=== PATIENT | female | born 1935 | race Caucasian/White ===

== ENCOUNTER 2017-04-06 11:33 | Day surgery (SDC) | payer MEDICARE, MEDICAID ==
[~2017-04-06] VITALS: Ht 160 cm; Wt 80.7 kg
[~2017-04-06 11:33] MED LIST: 0.9% Sodium Chloride 1,000 ML IV SCH; COLE1TAB2 PO; HYDR-656 PO; METF-496 PO; PIOG45TA PO; SITA50TA PO; Sodium Chloride LOK Flush 10 mL Syringe IV PRN; TELM1TAB PO; fentaNYL-PF 50 mCg/mL 2 mL Inj IVPUSH PRN
[2017-04-06 12:53] VITALS: BP 151/72; PULSE 69; O2SAT 98
[2017-04-06] MEDS ORDERED: 0.9% Sodium Chloride 1,000 ML IV ONE (13:45)
[2017-04-06 13:50] VITALS: BP 120/52; PULSE 73; RESP 16; O2SAT 98
[2017-04-06 14:00] VITALS: BP 110/50; PULSE 75; RESP 16; O2SAT 97
[2017-04-06 14:10] VITALS: BP 136/73; PULSE 76; RESP 16; O2SAT 99
--- NOTE | 2017-04-06 14:17 | PCM.ENDCOL ---
Colonoscopy Date of Service: Apr 06, 2017 Physician Stuart Fried MD Pre Procedure Diagnosis: Diarrhea screening Post Procedure Dx & Findings: Polyp hemorrhoids and diverticulosis Procedure Colonoscopy PROCEDURE IN DETAIL: Prep adequate Withdrawal time 12 minutes After unremarkable rectal examination the Olympus video colonoscope was inserted patient's anal canal and was advanced to cecum. Landmarks were identified including the ileocecal valve and appendiceal orifice. I attempted to insert the scope into the terminal ileum. Unsuccessful. Scope was withdrawn systematically. Visualized colonic mucosa showed healthy shiny mucosa with normal healthy-appearing vasculature. In the cecum, there was a 2-3 mm polyp which was removed completely using cold snare. In the ascending colon there was a 1 mm polyp which is removed completely using cold forceps. Random biopsies were done from the cecum to the rectum for workup of diarrhea. Patient had diverticulosis mostly in the sigmoid colon however some isolated diverticula noted in the cecum and the ascending colon. There were all small. In the rectum retroflexion was done which showed hemorrhoids. Anal canal was inspected carefully on the way out and hemorrhoids noted. Impression Polyp 2 status post complete removal Diverticulosis Hemorrhoids Recommendation Repeat colonoscopy in 5 years Diverticular diet Presedation Assessment Risks and Benefits Informed consent was obtained from the patient after all risks and benefits including but not limited to drug reaction, infection, pain, bleeding, perforation, as well as alternatives were discussed. Patient monitoring Continuous pulse oximetry, cardiac monitoring, blood pressure monitoring, IV access, and oxygen at 2L per nasal cannula. Periprocedural Fentanyl: Fentanyl 100mcg Incrementally Midazolam: Midazolam 5mg Incrementally Complications There were no periprocedural complications identified. Post Procedure Plan Post Procedure Recommendations 1. Restrict activities today. 2. Resume normal activities in the morning. 3. Resume medications. 4. Patient informed of normal post procedure side effects as bloating, drowsiness, blood streaking in the stool. 5. average risk CRCS. If colon polyps come back as: -Hyperplastic- can repeat colonoscopy in 10 years -Tubular adenoma- repeat colonoscopy in 5 years -Tubulovillous/villous adenoma- repeat colonoscopy in 3 years -If any dysplasia- return to clinic as soon as possible 6. Please don't hesitate to call me with any questions. Stuart Fried MD Apr 06, 2017 14:17
--- NOTE | 2017-04-13 09:31 | PATH ---
SURGICAL PATHOLOGY Attending Physician:Stuart Fried M.D. CASE STATUS: Signed Out PATIENT NAME: IRIS MARIN PID: [id number] : 1935 DATE COLLECTED:04/06/2017 00:00 SPECIMEN: 1: Colon, Polyp 2: Colon, Polyp 3: Colon, Biopsy CLINICAL HISTORY: 1). CECAL POLYP 2). ASCENDING POLYP 3). RANDOM COLON BIOPSY FINAL DIAGNOSIS: 1.CECAL POLYP: TUBULAR ADENOMA. 2.ASCENDING COLON POLYP: TUBULAR ADENOMA. 3.RANDOM COLON BIOPSY: COLONIC MUCOSA WITH NO DIAGNOSTIC ALTERATIONS. Negative for inflammation, dysplasia and malignancy. ICD10 D12.0 D12.2 GROSS DESCRIPTION: Received three formalin-filled containers, each labeled with the patient' s name: 1. In a container labeled "cecal polyp", the specimen consists of three portions of tissue which aggregate to 0.3 x 0.3 x 0.2 cm. The specimen is entirely submitted in cassette 1A. 2. In a container labeled "ascending polyp", the specimen consists of a 0.3 x 0.2 x 0.2 cm portion of tissue which is entirely submitted in cassette 2A. 3. In a container labeled "random colon", the specimen consists of multiple portions of tissue which aggregate to 0.4 x 0.4 x 0.2 cm. The specimen is entirely submitted in cassette 3A. ([id number]) MICRO DESCRIPTION: See diagnosis. ICD-9 CODES: CPT CODES: 1: 51834 2: 90566 3: 29561 Electronically Signed Out Magnolia Garcia MD [facility] [address], [place] [address] Technical component performed at [facility], [address], [place], [address]
== END 2017-04-06 23:59 | disposition home or self-care (01) ==
LOC: END 11:33
PROVIDERS: ATTEND Internal Medicine
DX: R19.7 Diarrhea, unspecified (principal); D12.2 Benign neoplasm of ascending colon; D12.0 Benign neoplasm of cecum; K57.30 Diverticulosis of large intestine without perforation or abscess without bleeding; K64.9 Unspecified hemorrhoids; Z80.0 Family history of malignant neoplasm of digestive organs; E11.42 Type 2 diabetes mellitus with diabetic polyneuropathy; Z79.84 Long term (current) use of oral hypoglycemic drugs; I10 Essential (primary) hypertension; E03.9 Hypothyroidism, unspecified
CPT/HCPCS: 45380; 45385; 99153; G0500; J2250; J3010; J7030

== ENCOUNTER → 2017-06-29 | Day surgery (SDC) | payer MEDICARE ==
[~2017-06-29] VITALS: Ht 162.6 cm; Wt 80.2 kg
[~2017-06-29] MED LIST changes: -0.9% Sodium Chloride 1,000 ML IV SCH; +Atropine 0.4 mg/mL Inj IVPUSH PRN; +Bupivacaine-MPF 0.25% 30 mL Inj INFILTRATE ONE; +Clindamycin Inj 900 MG in IV Premix 1 EACH IV ONE; +Dexamethasone 4 mg/mL Inj IVPUSH PRN; +EPHEDrine Sulfate 50 mg/mL Inj IVPUSH PRN; +HYDROmorphone 1 mg/mL Inj IVPUSH PRN; +Labetalol 5 mg/mL 20 mL Inj IV PRN; +Lactated Ringer's 1,000 ML IV SCH; +Lactated Ringer's 500 ML IV PRN; +Lidocaine 2%-Epi 1:100,000 20 mL Inj INFILTRATE ONE; +MAGN250T2 PO; +Ondansetron 2 mg/mL 2 mL Inj IVPUSH PRN; -PIOG45TA PO; +Phenylephrine 10,000 mCg/mL Inj IVPUSH PRN; +Propofol 10,000 mCg/mL 20 mL Inj ONE; +Remifentanil 1 mg/3 mL Inj ONE; -Sodium Chloride LOK Flush 10 mL Syringe IV PRN; +hydrALAZINE 20 mg/mL Inj IVPUSH PRN; +levoFLOXacin Inj 500 MG in IV Premix 1 EACH IV ONE
--- NOTE | 2017-06-29 07:32 | PCM.HPANE ---
Patient Data Surgeon Admitting Provider: Attending Provider:Jose Arreola MD Primary Care Physician:Marciano Bowens MD Other Provider:[facility] [facility] Reason for Visit Right Cheek Basal Cell Carcinoma Ht/WT & BMI Height (Feet): 5 Height (Inches): 4 Weight (Kilograms): 81.647 Body Mass Index 30.00 Allergies Coded Allergies: amoxicillin (Verified Allergy, Unknown, UNKNOWN (PT REMEMBERS NO REACTION; FEELS SHE IS NOT ALLERGIC), 06/23/17) clindamycin (Verified Allergy, Unknown, UNKNOWN, 06/23/17) codeine (Verified Allergy, Unknown, UNKNOWN, 06/23/17) onion (Verified Adverse Reaction, Severe, N/V, 06/23/17) Past Anesthesia History Anesthesia History: Denies:: Abnormal Airway, Anesthesia Reactions, Difficult Intubation, Fam Anesthesia Reaction, Fam Malignant Hypertherm, Malignant Hyperthermia Diabetes History Hx Diabetes?: Yes (01/2017 HGB A1C 5.9) Type of Diabetes: Type II Glycemic Control: Oral Medication MRSA MRSA: No Medications Hypertension Medication: Yes (MICARDIS HCT) Reported Medications Metformin ER 1,000 Mg Tablet1,000 Mg PO BID Ref 0 04/05/17 Telmisartan/HCTZ 80-25 mg (Micardis HCT 80-25 mg)1 Each Tablet1 Tablet PO DAILY 04/05/17 Sitagliptin Phos (Januvia)50 Mg Fniafy10 Mg PO DAILY Ref 0 04/05/17 hydrOXYzine Hcl (HydrOXYzine Hcl)25 Mg Natifz86 Mg PO HS PRN For Anxiety 04/05/17 Colestipol 1 Gm Tablet1 Gm PO BID 04/05/17 Discontinued Reported Medications Magnesium 250 Mg [id number] Mg PO BID PLEASE VERIFY DOSAGE 06/23/17 Pioglitazone-Expunged Drug, Do Not Renew! 45 Mg Yneqif68 Mg PO DAILY 10/25/10 History History of ENT Problems?: Yes HEENT History: Positive for:: Cataracts (S/P EXTRACTION) Hearing Problem Denies:: Abnormal Airway Difficult Intubation Dysphagia Denture Type: Full- Upper Full- Lower Teeth Condition: Within Normal Limits Hx of Heart Problems?: Yes Cardiovascular History: Positive for:: Chest Pain (HX OF 10/2009 MPS WNL) Hypertension Denies:: AICD Atrial Fibrillation Pacemaker Valvular Heart Disease Hx of Respiratory Problem?: No Respiratory History: Denies:: Use of C-PAP Machine Hx Neurologic Problems?: Yes Neurological History: Positive for:: Headaches (occas) Denies:: CVA Dementia Other Neurological Pertinent: C/OF DIABETIC POLYNEUROPATHY Hx of GI Problems?: Yes Other GI Pertinent History: C/OF LONG-STANDING HX OF DIARRHEA Hx of Problems?: No Female Hx: Denies:: Currently Skin History: Positive for:: History Skin Disorders? (S/P OFFICE EXC BBASAL CELL CA FACE BCC FACE=CURRENT PROBLEM) Denies:: Pressure Ulcers Hx Musculoskeletal Problems?: Yes Musculoskeletal History: Positive for:: Joint Replacement (S/P LT TKA) Musculoskeletal Trauma (S/P ORIF LT PROX. HUMERUS (FALL)) Hx of Psycho/Social Problems?: Yes Psycho Social History: Positive for:: Anxiety Hx Depression Hx Surgeries?: Yes (LT TKA,CATARACT,ORIF LT PROX. HUMERUS,EXC FACIAL BCC) Hx Any Other Health Problems?: Yes Other History: Positive for:: Thyroid Disease (ON NO MEDS) Denies:: Cancer Endocrine Disease Hospitalization History Blood Transfusions: Denies:: Blood Transfusions Hx Diabetes: Yes (01/2017 HGB A1C 5.9) Hx Alcohol Use: NoHx Substance Use: NoHave You Smoked inLast 12 mo: No Stop/Bang S-Snoring: Do You Snore Loudly: No T-Tired: feel tired, fatigued: Yes O-Obsered: Observed not breath: No P-Blood Pressure: treated: Yes B- Body Mass Index > 35 kg/m2: No A- Age over 50: Yes N- Neck Large Circumference: No G- Gender Male: No DAY Total Score: 3 Risk Assessment Category Category 1A: Patient has history of documented sleep apnea, and HAS NOT received any narcotic, sedative or anesthesia administration during this stay. Category 1B: Patient has history of documented sleep apnea, and HAS received any narcotic , sedative or anesthesia administration during this stay Category 2: Patient has SUSPECTED Obstructive Sleep Apnea, and HAS received any narcotic , sedative or anesthesia administration during this stay. Category 3: Patient has SUSPECTED Obstructive Sleep Apnea and HAS NOT received narcotic, sedative or anesthesia administration during this stay. Category 4: Outpatient in Procedural Areas with known sleep apnea or who screen positive for High Risk via the STOP/BANG questionnaire. Exam Exam General Appearance: Alert, Oriented X3, Cooperative HEENT/AIRWAY: MP 3 Lungs: Clear to Auscultation Heart: Exam Unremarkable Plan Impression Patient chart reviewed, patient interviewed and anesthestic plan with risks, benefits, and alternatives discussed, and informed consent obtained. ASA Physical Status: ASA2 Mod Systemic Disease Anesthetic Plan: MAC Bene/Risks/Altern/Consents: Yes HP Complete Prior to Induction: Yes Zane Sanz MD Jun 29, 2017 07:32
[2017-06-29 07:33] VITALS: BP 150/62; PULSE 73; RESP 16; O2SAT 100
[2017-06-29] MEDS: Lactated Ringer's 1,000 ML IV SCH ×2 (08:07→08:59)
[2017-06-29 09:55] VITALS: BP 131/55; PULSE 75; RESP 16; O2SAT 100
--- NOTE | 2017-06-29 10:22 | PCM.ANEP1 ---
Post Anesthesia PACU Phase 1 Assessment Vital Signs Vital Signs Date Time Temp Pulse Resp B/P Pulse Ox O2 Delivery O2 Flow Rate FiO2 06/29/17 09:55 36.2 75 16 131/55 100 Room Air 06/29/17 07:33 36.4 73 16 150/62 100 Room Air Anesthetic Administered: MAC Level of Alertness: Awake, talking PEDERSEN's with Equal Strength: Yes Pain: No Nausea or Vomiting: No CV Function & Hydration Stable: Yes Airway Device: Oxygen Delivery: Room Air Lungs: Clear to Auscultation PACU Phase 2 Assessment Complications: No Follow up Care: No Patient Instructions Provided: N/A Zane Sanz MD Jun 29, 2017 10:22
--- NOTE | 2017-06-30 18:46 | OP ---
[address] [address] OPERATIVE REPORT PATIENT: IRIS MARIN : 1935 MR#: [id number] ADMIT: 06/29/2017 JOB ID: [id number] DATE OF SURGERY: 06/29/2017 PREOPERATIVE DIAGNOSIS(ES): Right medial cheek, nasolabial fold basal cell carcinoma. POSTOPERATIVE DIAGNOSIS(ES): Right medial cheek, nasolabial fold basal cell carcinoma. PROCEDURE PERFORMED: 1. Excision of right nasolabial basal cell carcinoma. Defect size 8-9 mm. 2. Layered closure of right medial cheek defect. Total length of layered closure 3 cm. SURGEON: Jose Arreola MD. CEMENT CONVEYOR OPERATOR: None. ANESTHESIA: MAC with local. COMPLICATIONS: None apparent. SPECIMEN: Right nasolabial basal cell carcinoma to Pathology. Frozen section demonstrated negative surgical margins. INDICATIONS FOR PROCEDURE: This is an 81-year-old, female patient with a biopsy-proven nasolabial fold basal cell carcinoma. At this point, excision is indicated. Due to the location in the central face, frozen section was elected to clear the margins and to minimize size of the defect. PROCEDURE AND FINDINGS: The patient was identified in the preoperative area. The location of basal cell carcinoma was marked. This was confirmed with dermatology photographs. The patient was then taken back to the operating room and placed supine on the operating table. Appropriate time-outs were taken. MAC was induced smoothly. The patient was then prepped and draped in the usual sterile manner. It was noted that patient has a healed biopsy scar just lateral to the nasolabial fold at the region of the ala. A 2 mm margin was marked around this scar which was approximately 4-5 mm. Incision was then made around the [place] into the underlying subcutaneous tissue. The circular piece of skin was then resected from the subcutaneous tissue. This was passed off to Pathology with a short stitch marking superior. Pathology frozen section report demonstrated no residual carcinoma. At this point, an ellipse was then designed to encompass the defect which measured approximately 8-9 mm in diameter. The incision and the ellipse was designed to lie along the junction of the nasal sidewall and the cheek as well as along the nasolabial fold. Incisions were then made into the ellipse, down into the subcutaneous tissue. The two skin darts were removed from the superior and inferior aspect of the defect. The incision was then reapproximated first with a layer of 5-0 Monocryl deep dermal suture, followed by 5-0 Monocryl simple running suture. The patient tolerated the procedure well. Needle count, sponge count, instrument counts were correct at the end of procedure. The patient was transported to recovery in a stable condition.
== END | disposition home or self-care (01) ==
LOC: SAS 07:08
PROVIDERS: ATTEND Plastic Surgery
DX: C44.319 Basal cell carcinoma of skin of other parts of face (principal); I10 Essential (primary) hypertension; E11.42 Type 2 diabetes mellitus with diabetic polyneuropathy; E03.9 Hypothyroidism, unspecified; M19.90 Unspecified osteoarthritis, unspecified site; Z79.84 Long term (current) use of oral hypoglycemic drugs; Z96.652 Presence of left artificial knee joint; Z85.828 Personal history of other malignant neoplasm of skin
CPT/HCPCS: 11640; 12052; J2704; J7120